=== PATIENT | female | born 1995 | race Caucasian/White ===

== ENCOUNTER 2023-11-17 14:43 | Emergency (ER) | payer OTHER, SELFPAY ==
[2023-11-17 14:49] VITALS: BP 152/119; PULSE 88; RESP 18; TEMP 36.6; O2SAT 99; BMI 32.9
--- NOTE | 2023-11-17 15:00 | ED.GENADULT ---
HPI - General Adult General Chief complaint: Headache/Migraine Stated complaint: headache Time Seen by Provider: 11/17/23 14:50 History of Present Illness HPI narrative: Patient reports on and off headache and nausea for two weeks. Today the headache has not gone away for 24 hours. Pain is made worse with abrupt movement. No sensitivity to light or noise. Does not typically get migraines. 28-year-old woman presenting to the emergency department complaint of headache. Related Data Home Medications ?Medication ?Instructions ?Recorded ?Confirmed fluoxetine 20 mg capsule 20 mg PO QDAY 06/24/23 06/24/23 Allergies Allergy/AdvReac Type Severity Reaction Status Date / Time No Known Drug Allergies Allergy Verified 06/24/23 09:50 Exam Const: Vital Signs, click to edit/add: Vital Signs - 24 hr 11/17/23 14:49 Temperature 97.9 F Pulse Rate [Pulse Oximeter] 88 Respiratory Rate 18 Blood Pressure [Ri ght Upper Arm] 152/119 H Pulse Oximetry 99 Oxygen Delivery Me thod Room Air Course Vital Signs Vital signs: Initial Vital Signs Temperature 97.9 F 11/17/23 14:49 Temperature Source Temporal Artery Scan 11/17/23 14:49 Pulse Rate 88 11/17/23 14:49 Respiratory Rate 18 11/17/23 14:49 Blood Pressure 152/119 H 11/17/23 14:49 Blood Pressure Mean 130 H 11/17/23 14:49 Pulse Oximetry 99 11/17/23 14:49 Oxygen Delivery Method Room Air 11/17/23 14:49 Vital Signs Temperature 97.9 F 11/17/23 14:49 Pulse Rate 88 11/17/23 14:49 Respiratory Rate 18 11/17/23 14:49 Blood Pressure 152/119 H 11/17/23 14:49 Pulse Oximetry 99 11/17/23 14:49 Oxygen Delivery Method Room Air 11/17/23 14:49 Temperature 97.9 F 11/17/23 14:49 Pulse Rate 88 11/17/23 14:49 Respiratory Rate 18 11/17/23 14:49 Blood Pressure 152/119 H 11/17/23 14:49 Pulse Oximetry 99 11/17/23 14:49 Oxygen Delivery Method Room Air 11/17/23 14:49 Discharge Plan Discharge Prescriptions: No Action fluoxetine 20 mg capsule 20 mg PO QDAY Follow Up/Referrals: Provider,Not a Local [Primary Care Provider] -
--- NOTE | 2023-11-17 15:11 | CRLHL7_ITS ---
For Patients: As a result of the Century Cures Act, medical imaging exams and procedure reports are released immediately into your electronic medical record. You may view this report before your referring provider. If you have questions, please contact your health care provider. INDICATION: Headache. TECHNIQUE: Non-contrast CT of the head is submitted. No comparisons. FINDINGS: The ventricles, sulci and gyri are of normal size, shape and contour. Midline structures are centrally located. No convincing evidence of intra- or extra-axial fluid collections. IMPRESSION: 1. No radiographic evidence of acute intracranial abnormalities. Please note that all CT scans at this facility use dose modulation, iterative reconstruction, and/or weight-based dosing when appropriate to reduce radiation dose to as low as reasonably achievable. Dictated by Ab Winkler MD @ 11/17/2023 4:26:00 PM (Electronically Signed)
[2023-11-17] MEDS: LACTATED RINGERS 1000 ML 1,000 ML IV (15:28)
[2023-11-17] MEDS: diphenhydrAMINE 50 MG/ML inj 25 MG IVP (15:30)
[2023-11-17] MEDS: KETOROLAC 15 MG/ML inj IVP (15:32)
[2023-11-17] MEDS: METOCLOPRAMIDE HCL 5 MG/ML INJ 10 MG IVP (15:34)
--- NOTE | 2023-11-17 15:38 | ED.HA ---
HPI - Headache General Date Seen: 11/17/23 <Rusty Chan DO - Last Filed: 11/17/23 16:10> Chief Complaint: Headache/Migraine <Rusty Chan DO - Last Filed: 11/17/23 16:10> Stated Complaint: headache <Rusty Chan DO - Last Filed: 11/17/23 16:10> Time Seen by Provider: 11/17/23 14:50 <Rusty Chan DO - Last Filed: 11/17/23 16:10> Source: patient <Rusty Chan DO - Last Filed: 11/17/23 16:10> Mode of arrival: ambulatory <Rusty Chan DO - Last Filed: 11/17/23 16:10> Limitations: no limitations <Rusty Chan DO Last Filed: 11/17/23 16:10> History of Present Illness HPI Narrative: Patient is a 28-year-old female presenting to the emergency department for a headache. She states the headache started about 2 weeks ago has been on off since then. States away for few hours and come back for 30 minutes. Now for the past 24 hours it will not go away. Abrupt movements will make the headache worse. Denies photophobia or phonophobia. No history of migraines previously. Pain is on the right side of her head starting the right occipital region going to her right forehead. States it is just on the right side and does not feel like a band around her head. No history of headaches before this. Minimal improvement with Excedrin migraine. Denies fevers, chills, weakness, numbness, lightheadedness, dizziness, abdominal pain, diarrhea, constipation, chest pain, shortness of breath. <Rusty Chan DO - Last Filed: 11/17/23 16:10> Related Data Home Medications: Home Medications ?Medication ?Instructions ?Recorded ?Confirmed fluoxetine 20 mg capsule 20 mg PO QDAY 06/24/23 06/24/23 Previous Rx's ?Medication ?Instructions ?Recorded ondansetron 4 mg disintegrating 4 mg PO Q6H #20 tabs 11/17/23 tablet <Rusty Chan - Last Filed: 11/17/23 16:10> Allergies/Adverse Reactions: Allergies Allergy/AdvReac Type Severity Reaction Status Date / Time No Known Drug Allergies Allergy Verified 06/24/23 09:50 <Rusty Chan DO - Last Filed: 11/17/23 16:10> Review of Systems Status of ROS: Reports: 10 or more systems reviewed and unremarkable except as noted in History and below <Rusty Chan DO - Last Filed: 11/17/23 16:10> [facility] Social History: Social History Smoking Status: Never smoker Do you use any of these nicotine containing products: None Second hand tobacco smoke exposure: No How often do you have a drink containing alcohol: monthly or less How many standard drinks containing alcohol do you have on a typical day: 1 or 2 AUDIT-C Alcohol total score: 1 Non-prescribed substance use: denies use service: No <Rusty Chan DO - Last Filed: 11/17/23 16:10> Exam Narrative: Exam Narrative: Const: Well-nourished, Well-developed, in mild distress Eyes: PERRL, no conjunctival injection, and symmetrical lids HENT: Atraumatic external nose and ears. Moist mucous membranes. Neck: Symmetric, trachea midline, No thyromegaly. CVS: RRR, No murmurs or gallops. Peripheral pulses 2+ and equal in all extremities RESP: Unlabored respiratory effort. Clear to auscultation bilaterally. GI: Nontender/Nondistended, No rebound or guarding. MSK:Extremities w/o deformity, Normal Active ROM Skin: Warm, Dry. No rashes or lesions. Neuro: Normal Muscle tone, Cranial nerves 2-12 grossly intact, normal [id number], normal [id number], normal gait, normal strength 5/5 upper lower extremities bilaterally, normal sensation upper and lower extremities bilaterally, normal rapid alternating movements. Psych: Awake, Alert, & Oriented x3. Appropriate mood and affect. <Rusty Chan DO - Last Filed: 11/17/23 16:10> Const: Vital Signs, click to edit/add: Vital Signs - 24 hr 11/17/23 14:49 Temperature 97.9 F Pulse Rate [Pulse Oximeter] 88 Respiratory Rate 18 Blood Pressure [Ri ght Upper Arm] 152/119 H Pulse Oximetry 99 Oxygen Delivery Me thod Room Air <Rusty Chan DO - Last Filed: 11/17/23 16:10> Vital Signs, click to edit/add: Vital Signs - 24 hr 11/17/23 14:49 Temperature 97.9 F Pulse Rate [Pulse Oximeter] 88 Respiratory Rate 18 Blood Pressure [Ri ght Upper Arm] 152/119 H Pulse Oximetry 99 Oxygen Delivery Me thod Room Air <Delfino Guzman MD - Last Filed: 11/17/23 16:37> Course Vital Signs Vital signs: Initial Vital Signs Temperature 97.9 F 11/17/23 14:49 Temperature Source Temporal Artery Scan 11/17/23 14:49 Pulse Rate 88 11/17/23 14:49 Respiratory Rate 18 11/17/23 14:49 Blood Pressure 152/119 H 11/17/23 14:49 Blood Pressure Mean 130 H 11/17/23 14:49 Pulse Oximetry 99 11/17/23 14:49 Oxygen Delivery Method Room Air 11/17/23 14:49 Vital Signs Temperature 97.9 F 11/17/23 14:49 Pulse Rate 88 11/17/23 14:49 Respiratory Rate 18 11/17/23 14:49 Blood Pressure 152/119 H 11/17/23 14:49 Pulse Oximetry 99 11/17/23 14:49 Oxygen Delivery Method Room Air 11/17/23 14:49 Temperature 97.9 F 11/17/23 14:49 Pulse Rate 88 11/17/23 14:49 Respiratory Rate 18 11/17/23 14:49 Blood Pressure 152/119 H 11/17/23 14:49 Pulse Oximetry 99 11/17/23 14:49 Oxygen Delivery Method Room Air 11/17/23 14:49 <Rusty Chan DO - Last Filed: 11/17/23 16:10> Initial Vital Signs Temperature 97.9 F 11/17/23 14:49 Temperature Source Temporal Artery Scan 11/17/23 14:49 Pulse Rate 88 11/17/23 14:49 Respiratory Rate 18 11/17/23 14:49 Blood Pressure 152/119 H 11/17/23 14:49 Blood Pressure Mean 130 H 11/17/23 14:49 Pulse Oximetry 99 11/17/23 14:49 Oxygen Delivery Method Room Air 11/17/23 14:49 Vital Signs Temperature 97.9 F 11/17/23 14:49 Pulse Rate 88 11/17/23 14:49 Respiratory Rate 18 11/17/23 14:49 Blood Pressure 152/119 H 11/17/23 14:49 Pulse Oximetry 99 11/17/23 14:49 Oxygen Delivery Method Room Air 11/17/23 14:49 Temperature 97.9 F 11/17/23 14:49 Pulse Rate 88 11/17/23 14:49 Respiratory Rate 18 11/17/23 14:49 Blood Pressure 152/119 H 11/17/23 14:49 Pulse Oximetry 99 11/17/23 14:49 Oxygen Delivery Method Room Air 11/17/23 14:49 <Delfino Guzman MD - Last Filed: 11/17/23 16:37> Medications Administered Medications: Discontinued Medications Generic Name Dose Route Start Last Admin Trade Name Freq PRN Reason Stop Dose Admin Diphenhydramine HCl 25 mg 11/17/23 15:11 11/17/23 15:30 Diphenhydramine 50 Mg/Ml Inj IVP 11/17/23 15:12 25 mg ONCE ONE Administration Lactated Ringer's 1,000 mls @ 1,000 mls/hr 11/17/23 15:11 11/17/23 16:34 Lactated Ringers 1000 Ml IV 11/17/23 16:10 Infused .Q1H ONE Infusion Ketorolac Tromethamine 15 mg 11/17/23 15:11 11/17/23 15:32 Ketorolac 15 Mg/Ml Inj IVP 11/17/23 15:12 15 mg ONCE ONE Administration Metoclopramide HCl 10 mg 11/17/23 15:11 11/17/23 15:34 Metoclopramide Hcl 5 Mg/Ml Inj IVP 11/17/23 15:12 10 mg ONCE ONE Administration <Rusty Chan DO - Last Filed: 11/17/23 16:10> Discontinued Medications Generic Name Dose Route Start Last Admin Trade Name Freq PRN Reason Stop Dose Admin Diphenhydramine HCl 25 mg 11/17/23 15:11 11/17/23 15:30 Diphenhydramine 50 Mg/Ml Inj IVP 11/17/23 15:12 25 mg ONCE ONE Administration Lactated Ringer's 1,000 mls @ 1,000 mls/hr 11/17/23 15:11 11/17/23 16:34 Lactated Ringers 1000 Ml IV 11/17/23 16:10 Infused .Q1H ONE Infusion Ketorolac Tromethamine 15 mg 11/17/23 15:11 11/17/23 15:32 Ketorolac 15 Mg/Ml Inj IVP 11/17/23 15:12 15 mg ONCE ONE Administration Metoclopramide HCl 10 mg 11/17/23 15:11 11/17/23 15:34 Metoclopramide Hcl 5 Mg/Ml Inj IVP 11/17/23 15:12 10 mg ONCE ONE Administration <Delfino Guzman MD - Last Filed: 11/17/23 16:37> MDM - Headache MDM Narrative Medical decision making narrative: Patient is a 28-year-old female presenting for headache. Migraine cocktail was ordered which included L of fluid along with Benadryl, Reglan, Toradol. Considering this has been going on for 2 weeks and she has no history of headaches similar to this in the past I will do a head CT to look for any abnormalities. Patient is feeling better after the medications. CT scan reviewed by myself shows no acute abnormalities. Pending final read by radiologist. Patient will be signed out to my colleague. <Rusty Chan DO - Last Filed: 11/17/23 16:10> Patient is a 28-year-old female presenting for headache. Migraine cocktail was ordered which included L of fluid along with Benadryl, Reglan, Toradol. Considering this has been going on for 2 weeks and she has no history of headaches similar to this in the past I will do a head CT to look for any abnormalities. Patient is feeling better after the medications. CT scan reviewed by myself shows no acute abnormalities. Pending final read by radiologist. Patient will be signed out to my colleague. Thomas -- Asked to follow-up, confirm normal C of head CT. Radiology over-read as below reassuring INDICATION: Headache. TECHNIQUE: Non-contrast CT of the head is submitted. No comparisons. FINDINGS: The ventricles, sulci and gyri are of normal size, shape and contour. Midline structures are centrally located. No convincing evidence of intra- or extra-axial fluid collections. IMPRESSION: 1. No radiographic evidence of acute intracranial abnormalities. Discharge per Dr. Chan <Delfino Guzman MD - Last Filed: 11/17/23 16:37> Discharge Plan Discharge Clinical Impression: Headache Qualifiers: Headache type: unspecified Headache chronicity pattern: unspecified pattern Intractability: not intractable Qualified Code(s): R51.9 - Headache, unspecified <Rusty Chan DO - Last Filed: 11/17/23 16:10> Patient Disposition: Home, Self-Care <Rusty Chan DO - Last Filed: 11/17/23 16:10> Condition: Improved <Rusty Chan DO - Last Filed: 11/17/23 16:10> Instructions: Acute Headache (DC) <Rusty Chan DO - Last Filed: 11/17/23 16:10> Additional Instructions: Take Tylenol and ibuprofen for your headache. Make sure to start taking medications when the pain starts to stay ahead of it. Also recommend using the Zofran as needed for nausea. Return to emergency department for new or worsening symptoms. <Rusty Chan DO - Last Filed: 11/17/23 16:10> Prescriptions: New ondansetron 4 mg tablet,disintegrating 4 mg PO Q6H Qty: 20 0RF No Action fluoxetine 20 mg capsule 20 mg PO QDAY <Rusty Chan DO - Last Filed: 11/17/23 16:10> Follow Up/Referrals: Provider,Not a Local [Non-Staff] - <Rusty Chan DO - Last Filed: 11/17/23 16:10> [facility] <Rusty Chan DO - Last Filed: 11/17/23 16:10>
== END 2023-11-17 16:42 | disposition home or self-care (01) ==
PROVIDERS: Emergency Provider Student in an Organized Health Care Education/Training Program; PCP Family Medicine
DX: R51.9 Headache, unspecified (principal)
CPT/HCPCS: 70450; 96361; 96374; 96375; 99282; 99284; J1200; J1885; J2765; J7120

== ENCOUNTER 2024-07-20 22:36 | Emergency (ER) | payer OTHER, SELFPAY ==
--- OUTSIDE RECORDS SUMMARY | 2024-07-20 22:38 | XMS_ITS | Clinical Summary ---
Author Organization [facility] Address [address] [place] [id number] Care Team Providers Care Wealth Management Manager Name Role Phone Josefa Hubbard MD Primary Care Prov ider Medications norethindrone, Contraceptive, (MICRONOR, 28,) 0.35 mg tabletIndications :Evaluation regarding contraception options Take 1 tablet by mouth once daily. 3 Package 4 08/28/19 17 Active Breast Pump - PurchaseIndicatio ns:Nipple pain For home use. Gestation age at delivery: 6 weeks. Reason for need: nipple pain . Length of need: approximately 1 yr 1 unit 10/31/19 17 Active Active Problems Problem Noted Date Diagnosed Date ADD (attention deficit disorder) 08/30/2009 Contact dermatitis and other eczema, due to unspecified cause 08/30/2009 Routine health maintenance 08/30/2009 Overview (08/30/2009): Last [facility]-11/10- age 12 Immunizations Immunization Administration Dates Next Due DTaP 11/24/2000, 9,07/03/1996,02/23/1996, HIB PRP-T (ActHIB,Hiberix) 04/07/1996,02/29/1996 ,1995 Hepatitis B (Peds) 08/03/1996,02/29/1996, 996 Human Papilloma Virus Vaccine 01/02/2013, 013,06/23/2011 Inactivated Polio Vaccine 11/24/2000,04/07/1996, 02/29/1996,1995 MMR 11/24/2000,06/04/1998 Meningococcal Vaccine 11/30/2007 Tdap 04/07/2016,11/30/2007 Family History Medical History Relation Name Comments Good Health Father Good Health Mother Good Health Sister Relation Name Status Comments Father Mother Sister Social History Tobacco Use Types Packs/Day Years Used Date Smoking Tobacco: Every Day Cigarettes 0.5 4 Smokeless Tobacco: Never Tobacco Cessation:Counseling Given: Yes Alcohol Use Standard Drinks/Week Comments No 0 (1 standard drink = 0.6 oz pur e alcohol) Comments No Sex and Gender Information Value Date Recorded Sex Assigned at Not on file 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 Gender Identity Not on file Sexual Orientation Not on file Obstetrics History Para Term AB IAB SAB Ectopic Multiple Livin g Live Births 1 1 1 1 2 Date Outcome GA Total Labor Labor/2nd/3rd Weight Sex Type Anes PTL Oliva A1 A5 Name Clin 2016 Term 40w 5d M Vag N Living Complications:None Last Filed Vital Signs Vital Sign Reading Time Taken Comments Blood Pressure 127/84 11/12/2016 5:06 PM CDT Pulse 87 11/12/2016 5:06 PM CDT Temperature 36.7 C (98.1 F) 11/12/2016 5:06 PM CDT Respiratory Rate 18 11/10/2016 3:32 PM CDT Oxygen Saturation 99% 11/12/2016 5:06 PM CDT Inhaled Oxygen Concentration - - Weight 88.9 kg (196 lb) 11/12/2016 5:06 PM CDT Height 168.2 cm (5' 6.22) 11/12/2016 5:06 PM CD T Body Mass Index 31.43 11/12/2016 5:06 PM CDT Plan of Treatment Health Maintenance Due Date Last Done Comments Pap test for age 21-65 10/25/2016 Depression screening for age 12+ 08/27/2017 08/27/2016, 11/12/2015 BMI (ht and wt on same day) for age 18+ 11/12/2017 11/12/2016, 11/10/2016, 10/30/2016, Additional history exists COVID-19 vaccine series () 12/05/2023 Influenza Vaccine (Season Ended) 2024 Tetanus booster 04/07/2026 04/07/2016, 11/30/2007 HIV for age 15-65 Completed 11/26/2015 Hepatitis C screening for age 18-79 Completed 11/26/2015 Tdap Completed 04/07/2016, 11/30/2007 Pneumococcal series for age 6-49 Aged Out No longer eligible based on patient's age to complete this topic Procedures Procedure Name Priority Date/Time Associated Diagnosis Comments ANTI HIV 1/2 Routine 11/26/2015 2:47 PM CDT Less than 8 weeks gestation of (HC) ANTI HCV Routine 11/26/2015 2:47 PM CDT Less than 8 weeks gestation of (HC) from Last 3 Months or Most Recently Relevant to Health Maintenance Results * ANTI HCV (11/26/2015 2:47 PM CDT) HEPATITIS C ANTIBODY Non-Reacti ve Non-Reacti ve 11/26/2015 9:05 PM CDT [facility] Blood BLOOD SPECIMEN / Unknown Venipuncture / Unknown 11/26/2015 2:47 PM CDT 11/26/2015 2:[address] [facility] - 11/26/2015 9:05 PM CDT Antibodies to HCV not detected; does not exclude the possibility of exposure to HCV. us April [employer] Final R esult [facility] [address] [place] [address], * ANTI HIV 1/2 (11/26/2015 2:47 PM CDT) HIV-1/HIV-2 ANTIBODY Non-Reacti ve Non-Reacti ve 11/26/2015 9:08 PM CDT [facility] Blood BLOOD SPECIMEN / Unknown Venipuncture / Unknown 11/26/2015 2:47 PM CDT 11/26/2015 2:47 PM [facility] 11/26/2015 9:08 PM CDT HIV-1 p24 and HIV-1/HIV-2 Ab not detected us April [employer] Final R esult [facility] [address] [place] [address], [place] from Last 3 Months or Most Recently Relevant to Health Maintenance Care Teams Wealth Management Manager Relationship Specialty Start Date End Date Josefa Hubbard MD [address] [place] [address] PCP - General Family Practice 11/12/15
[2024-07-20 22:41] VITALS: BP 165/105; PULSE 83; RESP 16; TEMP 36.6; O2SAT 98; BMI 31.3
--- NOTE | 2024-07-20 22:42 | ED_ITS ---
HPI - Abdominal Pain General Time Seen by Provider: 22:42 Date Seen: 07/20/24 Chief Complaint: Abdominal Pain Stated Complaint: kidney stone Time Seen by Provider: 07/20/24 22:41 Source: patient, family, RN notes reviewed and old records reviewed Mode of arrival: ambulatory Limitations: no limitations History of Present Illness HPI narrative: 28-year-old female who comes in today with left lower quadrant abdominal pain. Patient noted some left flank pain a couple days ago, that improved. She has a history of kidney stones and thought she had passed stone but had sudden onset of left lower quadrant pain today. No urinary symptoms. Nausea with no vomiting. Has not taken anything for her symptoms. No prior abdominal surgeries, last period was a couple days ago and denies possibility of . Related Data Home Medications ?Medication ?Instructions ?Recorded ?Confirmed fluoxetine 20 mg capsule 20 mg PO QDAY 06/24/23 07/20/24 Allergies Allergy/AdvReac Type Severity Reaction Status Date / Time No Known Drug Allergies Allergy Verified 03/08/24 09:23 PFSH PFS Social History Smoking Status: Never smoker Do you use any of these nicotine containing products: None Second hand tobacco smoke exposure: No How often do you have a drink containing alcohol: monthly or less How many standard drinks containing alcohol do you have on a typical day: 1 or 2 AUDIT-C Alcohol total score: 1 Non-prescribed substance use: denies use service: No Exam Narrative: Exam Narrative: General: Well-developed and well-nourished, tearful and appears uncomfortable Head: Atraumatic and normocephalic Eyes: Pupils are equal reactive, extraocular motions intact, conjunctiva clear ENT: External nose and ears are normal, posterior pharynx without erythema or exudate Neck: No midline cervical tenderness, full spontaneous range of motion the neck, trachea midline, no adenopathy Heart: Regular rate and rhythm no murmurs or thrills Lungs: Clear to auscultation bilaterally without wheezes or crackles Abdomen: Left lower quadrant tenderness and left CVA tenderness Musculoskeletal: No tenderness, deformity, or edema Neurologic: Awake, alert, and oriented x3, no gross focal neurologic deficits, cranial nerves intact as tested Psych: Mood and affect are appropriate Skin: No rashes Const: Vital Signs, click to edit/add: Vital Signs - 24 hr 07/20/24 22:41 07/20/24 23:43 Temperature 97.8 F Pulse Rate [Pulse Oximeter] 83 Respiratory Rate 16 Blood Pressure [Ri ght Upper Arm] 165/105 H Pulse Oximetry 98 97 Oxygen Delivery Me thod Room Air Course Course ED Course: Reviewed prior urgent care note from March 2024 when patient was seen with sore throat, diagnosed with strep pharyngitis. Patient seen examined, presents today with left lower quadrant abdominal pain. This started as some flank pain earlier in the week, history of kidney stones says this feels similar. On exam here patient's vital is stable, afebrile, left lower quadrant left CVA tenderness. Patient likely does have some kidney stone. CT scan of the abdomen pelvis ordered to evaluate for location which likely is at the UVJ, and size. Labs are ordered along with Toradol and Zofran. Care impacted by patient's nicotine use. Reevaluation(s) Time of Reevaluation #1: 23:36 Reevaluation #1: Labs in the minimal interpreted by me with leukocytosis, a normal basic metabolic panel with creatinine 1, urinalysis without evidence of infection. CT scan of the abdomen pelvis and Bentyl interpreted by me demonstrates a 3 4 mm stone at the UVJ. This should pass, will work on pain control and anticipate discharge. Time of Reevaluation #2: 23:47 Reevaluation #2: Patient recheck, appears much, we discussed findings and plan, stable discharge. Reviewed radiology interpretation CT scan which shows some bladder wall thickening that is nonspecific but could be correlated for UTI, patient's urine has no evidence for urinary tract infection. Vital Signs Vital signs: Initial Vital Signs Temperature 97.8 F 07/20/24 22:41 Temperature Source Temporal Artery Scan 07/20/24 22:41 Pulse Rate 83 07/20/24 22:41 Respiratory Rate 16 07/20/24 22:41 Blood Pressure 165/105 H 07/20/24 22:41 Blood Pressure Mean 125 H 07/20/24 22:41 Blood Pressure Position Sitting 07/20/24 22:41 Pulse Oximetry 98 07/20/24 22:41 Oxygen Delivery Method Room Air 07/20/24 22:41 Vital Signs Temperature 97.8 F 07/20/24 22:41 Pulse Rate 83 07/20/24 22:41 Respiratory Rate 16 07/20/24 22:41 Blood Pressure 165/105 H 07/20/24 22:41 Pulse Oximetry 98 07/20/24 22:41 Oxygen Delivery Method Room Air 07/20/24 22:41 Temperature 97.8 F 07/20/24 22:41 Pulse Rate 83 07/20/24 22:41 Respiratory Rate 16 07/20/24 22:41 Blood Pressure 165/105 H 07/20/24 22:41 Pulse Oximetry 97 07/20/24 23:43 Oxygen Delivery Method Room Air 07/20/24 22:41 Medications Administered Medications: Generic Name Dose Route Start Last Admin Trade Name Freq PRN Reason Stop Dose Admin Hydromorphone HCl 0.5 mg 07/20/24 23:20 07/20/24 23:23 Hydromorphone 0.5 Mg/0.5 Ml Inj IVP 07/20/24 23:21 0.5 mg ONCE ONE Administration Ketorolac Tromethamine 15 mg 07/20/24 22:51 07/20/24 22:55 Ketorolac 15 Mg/Ml Inj IVP 07/20/24 22:52 15 mg ONCE ONE Administration Ondansetron HCl 4 mg 07/20/24 22:51 07/20/24 22:55 Ondansetron 2 Mg/Ml Inj IVP 07/20/24 22:52 4 mg ONCE ONE Administration MDM - Abdominal Pain Lab Data Labs: Lab Results 07/20/24 07/20/24 Range/Units 22:45 22:50 WBC 13.21 H (4.50-11.00) K/uL RBC 4.89 (4.00-5.20) m/uL Hgb 14.9 (12.0-16.0) gm/dL Hct 44.2 (33.0-51.0) % MCV 90 (80-100) fL MCH 31 (26-34) pg MCHC 34 (32-36) gm/dL RDW Coeff of [place] 12.9 (11.5-15.5) % Plt Count 393 (140-440) K/uL Neut % (Auto) 61.9 (42.0-72.0) % Lymph % (Auto) 27.2 (20-44) % [place] % (Auto) 6.7 (0.0-11.0) % Eos % (Auto) 3.6 (0.0-7.0) % Baso % (Auto) 0.3 (0.0-3.0) % Neut # (Auto) 8.20 H (1.7-7.0) K/uL Lymph # (Auto) 3.60 H (0.90-2.90) K/uL [place] # (Auto) 0.90 (0.00-0.90) K/UL Eos # (Auto) 0.50 (0.00-0.50) K/uL Baso # (Auto) 0.00 (0.00-0.30) K/uL Abs Immat Gran (auto) 0.00 (0.00-0.30) K/uL Imm/Tot Granulo (auto) 0.3 % Sodium 140 (135-149) mmol/L Potassium 3.8 (3.6-5.1) mmol/L Chloride 106 (96-114) mmol/L Carbon Dioxide 22 (20-32) mmol/L Anion Gap 12 (7-15) mEq/L BUN 16 (5-24) mg/dL Creatinine 1.0 (0.5-1.5) mg/dL Estimated Creat Clear 81.45 Estimated GFR 79 ml/min Glucose 96 (60-115) mg/dL Calcium 9.2 (8.4-10.6) mg/dL Urine Color Yellow (Yellow) Urine Appearance Clear (Clear) Urine pH 6.5 (5.0-8.5) Ur Specific [place] 1.025 (1.000-1.030) Urine Protein 1+ A (Negative) Urine Glucose (UA) Negative (Negative) Urine Ketones Negative (Negative) Urine Blood 3+ A (Negative) Urine Nitrite Negative (Negative) Urine Bilirubin Negative (Negative) Urine Urobilinogen 0.2 (0.2-1.0) Ur Leukocyte Esterase Negative (Negative) Urine RBC 10-25 A (0-2) Urine WBC 0-2 (0-5) Ur Squamous Epith Cells None (None-Few) Urine Bacteria None (None) Urine HCG, Qual Negative (Negative) Discharge Plan Discharge Clinical Impression: Abdominal pain, LLQ, Calculus of ureterovesical junction (UVJ) Patient Disposition: Home, Self-Care Condition: Stable Instructions: Heat Pack Application (ED), Ureteral Stones (ED) Additional Instructions: Take Tylenol 1000 mg every 6 hours alternating with ibuprofen 400 mg every 6 hours. Take this regularly for 24 hours. Take oxycodone every 4 hours as needed for pain not controlled with Tylenol and ibuprofen. Take Zofran as needed for nausea and vomiting. Follow-up with urology. Call in the morning for an appointment with [facility] [phone] Activity Level: Activity as Tolerated Discharge Diet: Regular Prescriptions: No Action fluoxetine 20 mg capsule 20 mg PO QDAY Follow Up/Referrals: Josefa Hubbard MD [Primary Care Provider] - Stand Alone Forms: [address] Info Instructions
--- NOTE | 2024-07-20 22:50 | CRLHL7_ITS ---
For Patients: As a result of the Century Cures Act, medical imaging exams and procedure reports are released immediately into your electronic medical record. You may view this report before your referring provider. If you have questions, please contact your health care provider. Indication: Left flank pain, lower quadrant pain, suspect stone Technique: Noncontrast CT through the abdomen and pelvis with multiplanar reformats. Comparison: CT abdomen pelvis performed 10/08/2018 Findings: Lower chest: No acute abnormality appreciated. Hepatobiliary: No significant parenchymal abnormality is appreciated. Spleen: Unremarkable. Pancreas: No acute abnormality appreciated. Adrenal glands: No acute abnormality appreciated. Kidneys: Nonobstructing bilateral stones with no right hydronephrosis. [id number] left hydronephrosis noted. Bowel: No obstruction. No focal perienteric or pericolonic stranding is appreciated. The appendix is visualized and appears unremarkable. Vascular: Poorly evaluated on this noncontrast examination. Lymph nodes: No gross lymphadenopathy. Peritoneum: No free air. No free fluid. : Bladder wall thickening. Obstructing left 4 millimeter UVJ stone. Soft tissues: No acute abnormality appreciated. Bones: No acute fracture. No lytic or blastic lesion. Impression: 1. Obstructing 4 millimeter left UVJ stone with mild to moderate hydronephrosis. 2. Additional bilateral nonobstructing renal stones present. 3. Bladder wall thickening, nonspecific, can be correlated for UTI/cystitis. Please note that all CT scans at this facility use dose modulation, iterative reconstruction, and/or weight-based dosing when appropriate to reduce radiation dose to as low as reasonably achievable. Dictated by Femi Grissom MD @ 07/20/2024 11:43:48 PM (Electronically Signed)
[2024-07-20 22:51] LABS: Appearance Urine Clear (Clear); Bilirubin Urine Negative (Negative); Blood Urine 3+ (Negative); Color Urine Yellow (Yellow); Glucose Urine Negative (Negative); Ketones Urine Negative (Negative); Leukocyte Esterase Urine Negative (Negative); Nitrite Urine Negative (Negative); Protein Urine 1+ (Negative); Specific Gravity Urine 1.025 (1.000-1.030); Urobilinogen Urine 0.2 (0.2-1.0); pH Urine 6.5 (5.0-8.5)
[2024-07-20] MEDS: ONDANSETRON 2 MG/ML inj 4 MG IVP (22:55)
[2024-07-20] MEDS: KETOROLAC 15 MG/ML inj IVP (22:55)
[2024-07-20 23:01] LABS: Basophils Percent Auto 0.3 % (0.0-3.0); Eosinophils Percent Auto 3.6 % (0.0-7.0); Hematocrit 44.2 % (33.0-51.0); Hemoglobin* 14.9 gm/dL (12.0-16.0); Immature Granulocytes Pct Auto 0.3 %; Lymphocytes Percent Auto 27.2 % (20-44); Mean Corpuscular HGB Conc 34 gm/dL (32-36); Mean Corpuscular Hemoglobin 31 pg (26-34); Mean Corpuscular Volume 90 fL (80-100); Monocytes Percent Auto 6.7 % (0.0-11.0); Neutrophils Percent Auto 61.9 % (42.0-72.0); Platelet Count* 393 K/uL (140-440); RDW Coefficient of Variation % 12.9 % (11.5-15.5); Red Blood Count 4.89 m/uL (4.00-5.20); White Blood Count* 13.21 K/uL (4.50-11.00)
[2024-07-20 23:02] LABS: Slide Review Reflex No
--- OUTSIDE RECORDS SUMMARY | 2024-07-20 23:03 | XMS_ITS | Clinical Summary ---
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 us April [employer] Final R esult [facility] [address] [place] [address], * ANTI HIV 1/2 (11/26/2015 2:47 PM CDT) HIV-1/HIV-2 ANTIBODY Non-Reacti ve Non-Reacti ve 11/26/2015 9:08 PM CDT [facility] Blood BLOOD SPECIMEN / Unknown Venipuncture / Unknown 11/26/2015 2:47 PM CDT 11/26/2015 2:[address] [facility] 11[facility]26/2015 9:08 PM CDT HIV-1 p24 and HIV-1/HIV-2 Ab not detected us April [employer] Final R esult [facility] 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
[2024-07-20 23:05] LABS: WBC Urine 0-2 (0-5)
[2024-07-20 23:09] LABS: Chloride* 106 mmol/L (96-114); Potassium* 3.8 mmol/L (3.6-5.1); Sodium* 140 mmol/L (135-149)
[2024-07-20 23:12] LABS: Anion Gap 12 mEq/L (7-15); Blood Urea Nitrogen* 16 mg/dL (5-24); Calcium* 9.2 mg/dL (8.4-10.6); Carbon Dioxide* 22 mmol/L (20-32); Est. Creatinine Clearance* 81.45; Estimated Glomerular Filt Rate 79 ml/min; Glucose* 96 mg/dL (60-115)
[2024-07-20 23:19] LABS: Ur HCG Qualitative* Negative (Negative)
[2024-07-20] MEDS: HYDROmorphone 0.5 mg/0.5 ml inj IVP (23:23)
[2024-07-20 23:43] VITALS: O2SAT 97
[2024-07-20] MEDS: OxyCODONE/APAP 5-325 TABLET 1 TAB PO (23:51)
[2024-07-21] VITALS: BP 146/89; PULSE 71; RESP 16; O2SAT 96
== END 2024-07-21 00:10 | disposition home or self-care (01) ==
PROVIDERS: Emergency Provider Family Medicine; PCP Family Medicine
DX: R10.32 Left lower quadrant pain (principal); N20.1 Calculus of ureter
CPT/HCPCS: 36415; 74176; 80048; 81001; 81025; 85025; 94761; 96374; 96375; 99284; A9270; J1171; J1885; J2405